=== PATIENT | male | born 1995 | race Asian ===

== ENCOUNTER 2017-06-18 15:37 | Emergency (ER) | payer OTHER ==
[~2017-06-18] VITALS: Ht 172.7 cm; Wt 80.5 kg
[2017-06-18 15:38] VITALS: Ht 172.7 cm; Wt 80.5 kg
[2017-06-18 16:06] LABS: BASOPHIL % 1.8 % (0-2); PLATELET COUNT 267 x10^3mcL (130-400); RED CELL DISTRIBUTION WIDTH 13.3 % (11.5-14.5)
[2017-06-18 16:24] LABS: CALCIUM 9.8 mg/dL (8.5-10.1); CARBON DIOXIDE 22.7 mmol/L (21-32); CHLORIDE SERUM 100 mmol/L (98-107); CREATININE SERUM 1.3 mg/dL (0.7-1.3); GFR1 > 60 mL/min; GLUCOSE SERUM 128 mg/dL (74-106); POTASSIUM SERUM 3.5 mmol/L (3.5-5.1); SODIUM SERUM 142 mmol/L (136-145)
[2017-06-18 16:29] LABS: ALKALINE PHOSPHATASE 70 U/L (46-116); ALT/SGPT 42 U/L (16-63); AST/SGOT 28 U/L (15-37); BILIRUBIN TOTAL 0.6 mg/dL (0.20-1.00); LIPASE 103 IU/L (73-393)
[2017-06-18 16:30] LABS: TOTAL PROTEIN, SERUM 9.3 g/dL (6.4-8.2)
[2017-06-18 18:46] VITALS: BP 114/72
== END 2017-06-18 18:46 | disposition home or self-care (01) ==
LOC: ED 15:37
PROVIDERS: Emergency Medicine
DX: K29.70 Gastritis, unspecified, without bleeding (principal)
CPT/HCPCS: J1885; J2405; J2550; J3010; J7030; Q0092

== ENCOUNTER 2017-06-20 04:30 | Inpatient (IN) | payer OTHER ==
[~2017-06-20] VITALS: Ht 172.7 cm; Wt 82.2 kg
[2017-06-20 05:21] LABS: BASOPHIL % 0.4 % (0-2); PLATELET COUNT 243 x10^3mcL (130-400); RED CELL DISTRIBUTION WIDTH 13.2 % (11.5-14.5)
[2017-06-20 05:40] LABS: CALCIUM 9.8 mg/dL (8.5-10.1); CARBON DIOXIDE 21.9 mmol/L (21-32); CHLORIDE SERUM 103 mmol/L (98-107); CREATININE SERUM 1.4 mg/dL (0.7-1.3); GFR1 > 60 mL/min; GLUCOSE SERUM 124 mg/dL (74-106); POTASSIUM SERUM 3.6 mmol/L (3.5-5.1); SODIUM SERUM 142 mmol/L (136-145)
[2017-06-20 05:46] LABS: ALBUMIN 4.9 g/dL (3.4-5.0); ALKALINE PHOSPHATASE 72 U/L (46-116); ALT/SGPT 24 U/L (16-63); AST/SGOT 17 U/L (15-37); BILIRUBIN TOTAL 0.8 mg/dL (0.20-1.00); LIPASE 410 IU/L (73-393)
[2017-06-20 05:48] LABS: TOTAL PROTEIN, SERUM 8.9 g/dL (6.4-8.2)
[2017-06-20 09:02] VITALS: BP 122/71
[2017-06-20 09:41] LABS: T3 TOTAL 0.87 ng/mL
[2017-06-20 10:00] LABS: FREE T4 1.42 ng/dL (0.76-1.46); FREE THYROXINE INDEX 3.2 ug/dL (1.4-4.5); T4(THYROXINE) 8.4 ug/dL (4.7-13.3)
[2017-06-20 10:11] LABS: CHOLESTEROL/HDL RATIO 3.8; MAGNESIUM 2.1 mg/dL (1.8-2.4)
[2017-06-20 10:14] LABS: PHOSPHOROUS 0.8 mg/dL (2.5-4.9)
[2017-06-20 13:53] LABS: microscopic required? NO
[2017-06-20 14:26] LABS: urine erythrocyte NEGATIVE (NEGATIVE)
[2017-06-20 14:58] LABS: AMPHETAMINE QUAL UR NONE DETECTED (NEG <=1000)
[2017-06-20 17:15] VITALS: BP 120/72
[2017-06-20 19:05] VITALS: Ht 172.7 cm; Wt 82.2 kg
[2017-06-20 20:46] VITALS: BP 114/69
[2017-06-21 05:39] VITALS: BP 116/68
[2017-06-21 05:40] VITALS: BP 90/46
[2017-06-21 07:23] LABS: BASOPHIL % 0.9 % (0-2); PLATELET COUNT 186 x10^3mcL (130-400); RED CELL DISTRIBUTION WIDTH 13.8 % (11.5-14.5)
[2017-06-21 07:25] LABS: CALCIUM 8.4 mg/dL (8.5-10.1); CHLORIDE SERUM 106 mmol/L (98-107); GFR1 > 60 mL/min; GLUCOSE SERUM 77 mg/dL (74-106); PHOSPHOROUS 3.2 mg/dL (2.5-4.9); POTASSIUM SERUM 4.3 mmol/L (3.5-5.1); SODIUM SERUM 141 mmol/L (136-145)
[2017-06-21 08:20] VITALS: BP 121/76
[2017-06-21 12:16] VITALS: BP 122/73
[2017-06-21 16:39] VITALS: BP 137/76
[2017-06-21] MEDS ORDERED: IBUPROFEN400 MG PO (17:48)
[2017-06-21] MEDS ORDERED: GOOD NEIGHBOR P20 M2 PO (17:49)
[2017-06-21] MEDS ORDERED: COLACE100 MG PO (17:51)
[2017-06-21 17:57] VITALS: BP 137/76
== END 2017-06-21 19:13 | disposition home or self-care (01) | DRG 438 ==
LOC: ED 04:30 → DU 07:12
PROVIDERS: Emergency Medicine; Family Medicine
DX: K85.90 Acute pancreatitis without necrosis or infection, unspecified (principal); N17.0 Acute kidney failure with tubular necrosis; K56.7 Ileus, unspecified; K21.9 Gastro-esophageal reflux disease without esophagitis; K76.0 Fatty (change of) liver, not elsewhere classified; Z53.29 Procedure and treatment not carried out because of patient's decision for other reasons; E83.39 Other disorders of phosphorus metabolism; E78.5 Hyperlipidemia, unspecified; Z68.26 Body mass index [BMI] 26.0-26.9, adult; Z72.89 Other problems related to lifestyle; Z82.49 Family history of ischemic heart disease and other diseases of the circulatory system
CPT/HCPCS: 82962; 83880; 84439; J1170; J2405; J3010; J3490; J7030; J8597; Q0092; Q9967